=== PATIENT | female | born 1990 ===

== ENCOUNTER 2024-09-04 12:48 | Outpatient (CLI) | payer OTHER | END 2024-09-04 12:50 | disposition home or self-care (01) | LOC: PRENATAL 12:48 | PROVIDERS: ATTEND Obstetrics & Gynecology Maternal & Fetal Medicine | DX: O36.80X0 Pregnancy with inconclusive fetal viability, not applicable or unspecified (principal); Z36.82 Encounter for antenatal screening for nuchal translucency; Z36.9 Encounter for antenatal screening, unspecified; Z14.8 Genetic carrier of other disease; O09.529 Supervision of elderly multigravida, unspecified trimester; Z3A.14 14 weeks gestation of pregnancy ==

== ENCOUNTER → 2024-10-16 09:57 | Outpatient (CLI) | payer OTHER | END | disposition home or self-care (01) | LOC: PRENATAL 09:57 | PROVIDERS: ATTEND Obstetrics & Gynecology Maternal & Fetal Medicine | DX: O44.00 Complete placenta previa NOS or without hemorrhage, unspecified trimester (principal); O09.529 Supervision of elderly multigravida, unspecified trimester; Z3A.19 19 weeks gestation of pregnancy ==

== ENCOUNTER → 2024-12-14 10:24 | Outpatient (CLI) | payer OTHER | END | disposition home or self-care (01) | LOC: PRENATAL 10:24 | PROVIDERS: ATTEND Obstetrics & Gynecology Maternal & Fetal Medicine | DX: O26.849 Uterine size-date discrepancy, unspecified trimester (principal); O44.00 Complete placenta previa NOS or without hemorrhage, unspecified trimester; O09.529 Supervision of elderly multigravida, unspecified trimester; Z3A.28 28 weeks gestation of pregnancy ==

== ENCOUNTER → 2025-01-21 08:17 | Outpatient (CLI) | payer OTHER | END | disposition home or self-care (01) | LOC: PRENATAL 08:17 | PROVIDERS: ATTEND Obstetrics & Gynecology Maternal & Fetal Medicine | DX: O26.849 Uterine size-date discrepancy, unspecified trimester (principal); O36.8199 Decreased fetal movements, unspecified trimester, other fetus; O09.529 Supervision of elderly multigravida, unspecified trimester; Z3A.34 34 weeks gestation of pregnancy ==

== ENCOUNTER 2025-03-03 04:32 | Inpatient (IN) | payer OTHER ==
[~2025-03-03] VITALS: Ht 160 cm; Wt 3.2 kg
[2025-03-03 04:11] VITALS: BP 130/90
[2025-03-03 04:43] LABS: BASO % 0.4 % (0.1-1.2); EOS # 0.24 (0.04-0.54); EOS % 2.0 % (0.7-7.0); LYMPH # 2.81 (1.18-3.74); LYMPH % 23.1 % (19.3-53.1); MEAN PLATELET VOLUME 10.10 fl (9.4-12.4); MONO # 1.08 (0.24-0.82); MONO % 8.9 % (4.7-12.5); NEUT # 7.88 (1.56-6.13); NEUT % 64.5 % (34.0-71.1); RED CELL DISTRIBUTION WIDTH 13.8 % (11.6-14.4)
[2025-03-03 05:02] LABS: INR 0.94
[2025-03-03 05:07] LABS: ALT/SGPT 19.0 U/L (12-78); AST/SGOT 14.0 U/L (15-37); BILIRUBIN TOTAL 0.24 mg/dL (0.3-1.2); BUN CREA RATIO 12.0 (7.0-25.0); CREATININE SERUM 0.82 mg/dL (0.55-1.02); GFR 79.33; GLOBULINA 3.6 G/DL (2.4-3.5); GLUCOSE FASTING 108.0 mg/dL (65-100); OSMOLALITY SERUM 281.0 MOSM/KG (275-295)
[2025-03-03] MEDS ORDERED: CEFAZOLIN SODIUM 1,000 MG VIAL IV SCH (05:30)
[2025-03-03] MEDS ORDERED: RINGERS SOLUTION,LACTATED 1,000 ML IV SCH (05:45)
[2025-03-03] MEDS ORDERED: OXYTOCIN 10 UNITS/ML VIAL IV ONE (06:45)
[2025-03-03] MEDS ORDERED: ERYTHROMYCIN BASE OPHT 1GM EACH TUBE OP ONE (06:45)
[2025-03-03] MEDS ORDERED: MORPHINE SULFATE 4 MG/ML VIAL IV ONE (08:10)
[2025-03-03 08:57] VITALS: BP 118/71
[2025-03-03] MEDS ORDERED: MORPHINE SULFATE 4 MG/ML CARTRIDGE IV SCH (09:00)
[2025-03-03] MEDS ORDERED: SIMETHICONE 125 MG CAPSULE PO SCH (13:00)
[2025-03-03 13:17] LABS: BASO % 0.2 % (0.1-1.2); EOS # 0.02 (0.04-0.54); EOS % 0.1 % (0.7-7.0); LYMPH # 1.40 (1.18-3.74); LYMPH % 10.1 % (19.3-53.1); MEAN PLATELET VOLUME 10.60 fl (9.4-12.4); MONO # 0.83 (0.24-0.82); MONO % 6.0 % (4.7-12.5); NEUT # 11.50 (1.56-6.13); NEUT % 83.2 % (34.0-71.1); RED CELL DISTRIBUTION WIDTH 13.7 % (11.6-14.4)
[2025-03-03 16:00] VITALS: BP 108/66
[2025-03-03] MEDS ORDERED: DOCUSATE SODIUM 100MG CAP PO SCH (17:00)
[2025-03-03] MEDS ORDERED: OxyCODONE HCL 5 MG TABLET (ROXICODONE) PO SCH (18:00)
[2025-03-03] MEDS ORDERED: ACETAMINOPHEN 325 MG TABLET PO SCH (18:00)
[2025-03-04 00:41] VITALS: BP 100/65
[2025-03-04 08:52] VITALS: BP 100/65
[2025-03-04] MEDS ORDERED: SERTRALINE HCL 50 MG TABLET PO SCH (12:48)
[2025-03-04 13:51] VITALS: BP 100/61
[2025-03-04 16:00] VITALS: BP 114/78
[2025-03-05 00:49] VITALS: BP 109/74
[2025-03-05 08:30] VITALS: BP 100/60; O2SAT 99
[2025-03-05 16:00] VITALS: BP 100/64
[2025-03-05] MEDS ORDERED: SURFAK240 M1 PO (19:23)
[2025-03-05] MEDS ORDERED: PERCOCET 5-3251 EACH PO (19:23)
== END 2025-03-05 20:57 | disposition home or self-care (01) | DRG 788 ==
LOC: LDR 04:32 → OB/GYN 06:59
PROVIDERS: Specialist; ADMIT Obstetrics & Gynecology; ATTEND Obstetrics & Gynecology
PROC: 4A1HXCZ Monitoring of Products of Conception, Cardiac Rate, External Approach (ICD-10-PCS; 2025-03-03)
PROC: 10D00Z1 Extraction of Products of Conception, Low, Open Approach (ICD-10-PCS; principal; 2025-03-03 10:15)
DX: O76 Abnormality in fetal heart rate and rhythm complicating labor and delivery (principal); Z3A.39 39 weeks gestation of pregnancy; Z37.0 Single live birth